=== PATIENT | female | born 1945 | race Caucasian/White ===

== ENCOUNTER 2020-03-11 07:15 | Day surgery (SDC) | payer OTHER ==
--- NOTE | 2020-03-07 13:31 | RAD REPORT ---
EXAM DESCRIPTION: RAD - Chest Pa And Lat (2 Views) - 03/07/2020 1:24 pm CLINICAL HISTORY: pre op, pending heart catheterization COMPARISON: Portable April 2011 TECHNIQUE: Frontal and lateral views of the chest were obtained. FINDINGS: The lungs are clear. Interstitial pattern is similar to comparison. Heart size is normal and central vasculature is within normal limits. No pleural effusion or pneumothorax seen. No acute bony finding noted. No aortic abnormality. IMPRESSION: No acute cardiopulmonary process.
[2020-03-07 14:05] LABS: Absolute Lymphocytes (CBC) 2.9 K/uL (0.7-4.9); Basophils % 1.1 % (0-1.3); Hematocrit 38.3 % (36.0-45.0); Lymphocytes % 41.2 % (15.3-44.8); MPV 8.8 fL (7.6-11.3); RBC Red Blood Cell Count 4.33 M/uL (3.86-4.86)
[2020-03-07 14:10] LABS: Protime INR 1.03
[2020-03-07 14:18] LABS: Potassium 3.3 mmol/L (3.5-5.1)
--- NOTE | 2020-03-10 07:48 | EKG ---
Test Date: 2020-03-07 Test Time: 13:26:39 Solar Sales Advisor: ANGELO MEASUREMENT RESULTS: Intervals: Rate: 55 FL: 172 QRSD: 82 QT: 418 QTc: 399 [place]: P: 61 FL: 172 QRS: 85 T: 76 INTERPRETIVE STATEMENTS: Sinus bradycardia Otherwise normal ECG Compared to ECG 11/05/2016 15:19:04 Sinus rhythm no longer present Myocardial infarct finding no longer present Electronically Signed On 03-10-20 07:44:15 CDT by Sam Sandoval
--- OUTSIDE RECORDS SUMMARY | 2020-03-11 07:18 | XMS REPORT | Continuity of Care Document ---
:1945 Author Organization [facility] t Address [address] [place] [address] [address] [place] [address] Care Team Providers Name Role Phone Unavailable Unavailable Unavailable Problems Condition Condition Condition Status Onset Resolution Last Treating Co mments Source Name Details Category Date Date Treatment Clinician Date HTN HTN Problem Active [facility] - [facility] Ulcer Ulcer Problem [facility] Macular Macular Diagnosis [facility] degener[facility] degenerati [facility] - on, on, [facility]oria unspecifie unspecifie l d d Outpati laterality laterality en t , , Clinics unspecifie unspecifie d type d type Skin Skin Problem Active [facility] lesion [facility] Anxiety Anxiety Problem [facility] Primary Primary Problem Active [facility] osteoarthr osteoarthr Es kes - itis of itis of Mem[facility] left hand left hand l Outpati ent Clinics Thyroid Thyroid Diagnosis Active [facility] dysfunctio dysfunctio [facility] - n n [facility] Sciatica Sciatica Problem [facility] right of right [facility] side side [facility] Primary Primary Problem Active [facility] osteoarthr osteoarthr Es kes - itis, itis, [facility] right hand right hand l [facility] ent [facility] Constipati Constipati Problem Active [facility] on, on, [facility] - unspecifie unspecifie Me moria d d l constipati constipati Ou tpati on type on type ent Clinics Arthritis Arthritis Diagnosis Active [facility] Allergies, Adverse Reactions, Alerts Allergy Allergy Status Severity Reaction(s) Onset Inactive Treating Comm ents Source Name Type Date Date Clinician Tramadol Adverse [facility] Citalopr Adverse Active worsening [facility] am Reaction depression [facility] - Hydrobro [facility] mide l [facility] Codeine Adverse Active hallucinatio [facility] Sulfate Reaction ns [facility] Medications Ordered Filled Start Stop Current Ordering Indication Dosage Frequency Signature Comments Components Source Medication Medication Date Date Medication? Clinician (SIG) Name Name Shelley Rosa Yes Anju [address] [facility] 8-14 [facility] - 00:00: [facility] 00 l [facility] Metoprolol Metoprolol Yes Anju [address] [facility] Tartrate Tartrate Chunky with food L [facility] - [facility] Lisinopril- Lisinopril- Yes Anju take [address] [facility] Hydrochloro Hydrochloro [place]unky tablet by [facility] - thiazide thiazide mouth once M emoria daily l [facility] Amlodipine Amlodipine Yes Anju [address] [facility] Besylate Besylate Chunky L[facility] - [facility] l [facility] Levothyroxi Levothyroxi Yes Anju [address] [facility] ne Sodium ne Sodium [place]unky on an Emi es - empty [facility] stomach [facility] Eye Eye Yes Anju (AREDS)as [facility] Vitamins Vitamins [place]y directed Es kes - Memoria l [facility] Ondansetron Ondansetron Yes Anju not [facility] defined [facility] Biotin Plus Biotin Plus Yes Anju not [facility] Keratin Keratin [place] defined [facility] Vitamin Vitamin Yes Anju [address] [facility] B-12 ER B-12 ER [facility]unky [facility] Meclizine Meclizine Yes Anju [address] [facility] HCl HCl [facility] Aspirin 81 Aspirin 81 Yes Anju [address] [facility] Procedures This patient has no known procedures. Encounters Start End Encounter Admission Attending Care Care Encounter Source Date/Time Date/Time Type Type Clinicians Facility Department ID 2020-01-11 2020-01-11 Outpatient Sascha Mckeon [id number] [facility] 11:20:00 11:20:00 t [facility] - [facility] Medicine l Medicine Outpati ent Clinics 2019-06-27 2019-06-27 [facility] [id number] [facility] 13:00:00 13:00:00 t [facility] Medicine l Medicine Outpati ent Clinics 2019-04-30 2019-04-30 [facility] [id number] [facility] 13:40:00 13:40:00 t [facility] Medicine l Medicine Outpati ent Clinics 2019-04-09 2019-04-09 [facility] [id number] [facility] 11:40:00 11:40:00 t [facility] Medicine l Medicine Outpati ent Clinics 2018-12-06 2018-12-06 [facility] [id number] [facility] 10:40:00 10:40:[address] [facility] Medicine l Medicine Outpati ent Clinics 2018-11-28 2018-11-28 [facility] [id number] [facility] 11[facility]52:00 11:52:[address] [facility] Medicine l Medicine Outpati ent Clinics 2018-11-09 2018-11-09 [facility] [id number] [facility] 11:56:00 11:56:[address] [facility] Medicine Medicine Outpati ent Clinics 2018-11-06 2018-11-06 [facility] [id number] [facility] 15:02:00 15:02:[address] [facility] Medicine l Medicine Outpati ent Clinics 2018-05-18 2018-05-18 [facility] [id number] [facility] 08[facility]30:00 08:30:00 t [facility] Medicine l Medicine Outpati ent Clinics 2017-11-09 2017-11-09 [facility] [id number] [facility] 16:32:00 16:32:00 t [facility] Medicine l Medicine Outpati ent Clinics 2017-11-09 2017-11-09 [facility] [id number] [facility] [address] 08:32:00 08:32:[address] [facility] Outpati ent Clinics 2017-11-07 2017-11-07 [facility] [place] [id number] [address] 09:48:00 09:48:[address] [facility] 2017-09-15 2017-09-15 Outpatient Sascha Mckeon [id number] [facility] 10:00:00 10:00:00 [facility] 2017-08-16 2017-08-16 [facility] [id number] [address] 10:00:00 10:00:00 [facility] Results This patient has no known results.
--- OUTSIDE RECORDS SUMMARY | 2020-03-11 07:18 | XMS REPORT ---
:1945 Author Organization [employer] Care Team Providers Name Role Phone Anju Jade Provider Role Unavailable Allergies, Adverse Reactions, Alerts Substance Reaction Event Type Tramadol HCl vomiting Drug Allergy Codeine Sulfate hallucinations Drug Allergy Citalopram Hydrobromide worsening depression Drug Allergy Problems Problem Type Condition Code Onset Dates Condition Statu s Problem Sciatica of right side M54.31 Activ e Problem Macular degeneration, unspecified H35.30 Active laterality, unspecified type Problem Skin lesion L98.9 Active Problem Constipation, unspecified K59.00 Ac tive constipation type Problem Disorder of thyroid, unspecified E07.9 Active Problem Arthritis M19.90 Active Problem Thyroid dysfunction E07.9 Active Problem Ulcer L98.499 Active Problem Primary osteoarthritis, right hand M19.041 Active Problem Primary osteoarthritis of left hand M19.042 Active Assessment Arthritis M19.90 Active Assessment Macular degeneration, unspecified H35.30 Active laterality, unspecified type Assessment HTN (hypertension) I10 Active Assessment Thyroid dysfunction E07.9 Active Problem HTN (hypertension) I10 Active Assessment Anxiety F41.9 Active Problem Anxiety F41.9 Active Medications Medication Code Code Instructions Start End Status Dosage System Date Date Metoprolol [facility] 84505202506 50 MG Orally Active 1 ta blet Tartrate ONce a day with food Eye Vitamins [facility] [address]-80 - Orally BID Active (AREDS)as directed Cymbalta [facility] 53357202434 30 MG Orally Jan 10, Active 1 caps ule Once a day 2019 Aspirin 81 [facility] 93579437295 81 MG Orally Active 1 ta blet Once a day Amlodipine [facility] 42302145126 10 MG Orally Active 1 ta blet Besylate Once a day Vitamin B-12 ER [facility] 85473174440 1000 MCG Orally Acti ve 1 tablet Once a day Ondansetron [facility] 59883396495 4 MG Orally Active not defined Biotin Plus [facility] 86894803712 03841-246 Active not Keratin MCG-MG Orally defined Meclizine HCl [facility] 01306348623 25 MG Orally Active 1 tablet Once a day as needed Lisinopril-Gladstone [facility] 13271539593 20-12.5 MG Active take 1 chlorothiazide Orally Once a tab let by day mouth once daily Levothyroxine [facility] 69480832310 75 MCG Orally Active 1 tablet Sodium Once a day on an empty stomach in the morning Results No Known Results Summary Purpose [employer] Submission
[2020-03-11] MEDS ORDERED: NA CHLORIDE 0.9% 500 ML ONE (07:48)
[2020-03-11] MEDS ORDERED: NA CHLORIDE 0.9% 50 ML ONE (09:19)
[2020-03-11] MEDS ORDERED: MIDAZOLAM HCL 2 MG/2 ML INJ ONE ×2 (09:19→10:20)
[2020-03-11] MEDS ORDERED: FENTANYL CITR 100 MCG/2 ML ONE (09:19)
[2020-03-11] MEDS ORDERED: ATROPINE SULF 1 MG/10 ML SYR IV ONE (09:19)
[2020-03-11] MEDS ORDERED: HEPA 1000U/500MLS 1,000 UNIT/500 ML BAG IV ONE (10:20)
[2020-03-11] MEDS ORDERED: PRASUGREL (EFFIENT) 10 MG TAB ONE (11:05)
[2020-03-11] MEDS ORDERED: ASPIRIN 325 MG TAB ONE (11:05)
[2020-03-11] MEDS ORDERED: ONDANSETRON 4 MG/2 ML VIAL ONE (11:28)
[2020-03-11 12:39] VITALS: BMI 26.5
[2020-03-11] MEDS ORDERED: ACETAMINOPHEN 325 MG TABLET PO PRN (12:51)
[2020-03-11] MEDS ORDERED: NA CHLORIDE 0.9% 1,000 ML IV SCH (13:00)
[2020-03-11] MEDS ORDERED: NITROGLYCERIN 0.4 MG/TAB SL PRN (13:12)
[2020-03-11] MEDS ORDERED: ONDANSETRON 4 MG/2 ML VIAL IV PRN (13:12)
[2020-03-11 17:43] VITALS: O2SAT 98
[2020-03-11] MEDS ORDERED: ATORVASTATIN 80 MG TAB PO SCH (21:00)
[2020-03-12 05:44] LABS: Absolute Lymphocytes (CBC) 1.7 K/uL (0.7-4.9); Basophils % 0.7 % (0-1.3); Hematocrit 33.1 % (36.0-45.0); Lymphocytes % 21.8 % (15.3-44.8); MPV 8.6 fL (7.6-11.3); RBC Red Blood Cell Count 3.75 M/uL (3.86-4.86)
[2020-03-12 05:47] LABS: Potassium 3.4 mmol/L (3.5-5.1)
[2020-03-12 08:35] VITALS: BP 122/61; TEMP 97.9
[2020-03-12] MEDS ORDERED: ASPIRIN 81 MG CHEWABLE TABLET PO SCH (09:00)
--- NOTE | 2020-03-13 07:09 | EKG ---
Test Date: 2020-03-11 Test Time: 12:03:45 Senior Marketing Manager: MEASUREMENT RESULTS: Intervals: Rate: 59 IN: 182 QRSD: 84 QT: 468 QTc: 463 [place]: P: 77 IN: 182 QRS: 79 T: 27 INTERPRETIVE STATEMENTS: Sinus bradycardia Otherwise normal ECG Compared to ECG 03/07/2020 13:26:39 No significant changes Electronically Signed On 03-13-20 07:04:19 CDT by Sam Sandoval
--- NOTE | 2020-03-13 12:53 | OP ---
Date of Procedure: 03/11/2020 Surgeon: Sam Sandoval MD Procedures: Left heart catheterization, selective coronary arteriogram, and primary stent of mid LAD . History Of Present Illness: Ms. Adame is a 74-year-old woman, has had chest pain, positive stress t est, hypertension, dyslipidemia, was seen as an outpatient, scheduled for catheterization for today. Description Of Procedure: Today, she was brought to the sleep lab technician as an outpatient. She was prepped and draped in the routine sterile fashion, and she was given Versed and fentanyl for sedation. 10 cc of xylocaine were used to anesthetize the right groin. A 6-Italian sheath introduced in the right co mmon femoral artery successfully. Angiography there was normal. Angio-Seal was used to close the ca se. A JR4 and JL4 catheter were used to do the diagnostic catheterization. The right coronary arter y was normal. Left circumflex and left main were normal. She had a dual LAD system with this 80% lo ng mid LAD stenosis. We decided to intervene. An XB LAD 3.5 with side hole was used. This was used to cannulate the left main. A [place] wire was used to cross the lesion successfully. We used a 20 mm long about a 2.5 mm wide stent Synergy that was placed right at the bifurcation of both LAD system . This was dilated successfully with 0% residual. The patient tolerated the procedure well. There were no complications. Blood Loss: 5 mL. Anesthesia: Total conscious sedation was 45 minutes. The patient received aspirin, Effient, and Angiomax during the procedure. Final Diagnosis: Coronary artery disease status post successful primary stent of the mid LAD. Plan: For patient to stay overnight in the hospital. She will go home tomorrow morning after 2 hour s of bedrest tonight. She will be on her home medication, which will include Plavix, Lipitor, beta b locker, and aspirin. I will see her in the office in the next 2 weeks. LUH/RODNEY Voice ID: [id number] Report ID: [id number]
--- NOTE | 2020-03-13 13:35 | PN ---
Date of Progress Note: 03/12/2020 Subjective: Ms. Adame was admitted as an outpatient on 03/11/2020 for a heart catheterization becau se of chest pain and positive stress test. She underwent a catheterization and had a primary stent o f the mid LAD. She had a dual LAD system. She had 0% residual excellent results. No complication. Overnight, she is feeling well. No chest pain. Physical Examination: Vital Signs: Stable. Afebrile. Extremities: Her right groin site is intact with no hematoma. She had good distal pulses in the rig ht dorsalis pedis and posterior tibial. Chest: Clear. Final Impression: The patient is status post mid LAD stent successful. No complications overnight. She will go home. Resume normal activities tomorrow. Resume her home medication that she is taking plus Plavix 75 mg daily. I will see her in the office in 2 weeks. LUH/RODNEY Voice ID: [id number] Report ID: [id number]
== END 2020-03-12 09:33 | disposition home or self-care (01) ==
LOC: CCL 07:15 → 2ND 11:46 → CCL 03-12 09:33
DX: I25.10 Atherosclerotic heart disease of native coronary artery without angina pectoris (principal); I10 Essential (primary) hypertension; E78.5 Hyperlipidemia, unspecified; Z88.6 Allergy status to analgesic agent
CPT/HCPCS: 93005 ×2; 85025 ×2; 80048 ×2; 36415 ×2; 85610; 80061; 85347 ×2; 85730; 71046; 93454; C1893; C1760; C1725; C1877; C9600; J2250 ×2; J3010; J0583; J7040; J7030; J1644; J2405